=== PATIENT | male | born 1980 | race Caucasian/White ===

== ENCOUNTER 2017-05-15 09:24 | Emergency (ER) | payer BC ==
[~2017-05-15] VITALS: Ht 177.8 cm; Wt 99.8 kg
[2017-05-15 11:20] VITALS: BP 136/74
== END 2017-05-15 11:23 | disposition home or self-care (01) ==
LOC: FSED 09:24
DX: G89.11 Acute pain due to trauma (principal); M25.522 Pain in left elbow; I10 Essential (primary) hypertension; W06.XXXA Fall from bed, initial encounter
CPT/HCPCS: 99283

== ENCOUNTER 2018-09-12 14:47 | Emergency (ER) | payer BC ==
[~2018-09-12] VITALS: Ht 177.8 cm; Wt 102.1 kg
--- OUTSIDE RECORDS SUMMARY | 2018-09-12 14:49 | XMS REPORT ---
Author [facility] Address Unknown Phone Unavailable Care Team Providers Care Dietetic Assistant Name Role Phone Unavailable Unavailable Payers Payer Name Policy Type Policy Number Effective Date Expiration Date Problems This patient has no known problems. Allergies, Adverse Reactions, Alerts Allergy Name Allergy Type Status Severity Reaction(s) Onset Date Inactive Date Treating Clinician Comments No Known Allergies DA Active U 2018-06-07 00:00:00 Medications This patient has no known medications. Results Test Description Test Time Test Comments Text Results Atomic Results Result Comments COMPREHENSIVE METABOLIC PANEL 2018-06-07 13:19:00 SODIUM (test code=NA) 138 mEq/L 134-147 POTASSIUM (test code=K) 4.4 mEq/L 3.4-5.0 CHLORIDE (test code=CL) 104 mEq/L 100-108 CARBON DIOXIDE (test code=CO2) 30 mEq/L 21-33 ANION GAP (test code=GAP) 8 0-20 GLUCOSE (test code=GLU) 100 mg/dL 70-110 BLOOD UREA NITROGEN (test code=BUN) 11 mg/dL 7-18 GLOMERULAR FILTRATION RATE (test code=GFR) 75.3 105-110 Units of measure=ml/min/1.73 m2 CREATININE (test code=CREAT) 1.1 mg/dL 0.6-1.3 TOTAL PROTEIN (test code=PROT) 8.3 g/dL 6.4-8.2 ALBUMIN (test code=ALB) 4.30 g/dL 3.4-5.0 CALCIUM (test code=CA) 8.9 mg/dL 8.0-10.5 BILIRUBIN TOTAL (test code=BILT) 0.50 mg/dL 0.0-1.0 SGOT/AST (test code=AST) 28 IUnit/L 15-37 SGPT/ALT (test code=ALT) 52 IUnit/L 15-65 ALKALINE PHOSPHATASE TOTAL (test code=ALKP) 50 IUnit/L 20-125 HEPATIC FUNCTION [id number] 13:19:00* Test Item Value Reference Range Comments BILIRUBIN DIRECT (test code=BILD) 0.10 MG/DL 0.0-0.30 BILIRUBIN INDIRECT (test code=BILIND) 0.40 MG/DL [id number] 13:19:00* Test Item Value Reference Range Comments ALCOHOL (test code=ALC) < 0.003 G/dL <0.003 Ethyl Alcohol Interpretation: 0.100 gm/dL - Legally Intoxicated 0.300-0.400 gm/dL - Severely Intoxicated >0.400 gm/dL - Potentially LethalResults are for Medical purposes only, and not for Legal orEmployment evaluation purposes. DRUGS OF ABUSE SCREEN [id number] 13:09:00* Test Item Value Reference Range Comments URN COCAINE (test code=COCAURN) NEGATIVE NEGATIVE URN CANNABINOIDS (test code=CANNABURN) NEGATIVE NEGATIVE URN AMPHETAMINE (test code=AMPHETURN) NEGATIVE NEGATIVE URN BARBITURATE (test code=BARBITURN) NEGATIVE NEGATIVE URN BENZODIAZEPINE (test code=BENZOURN) NEGATIVE NEGATIVE Cut-off value:200 ng/mL URN OPIATES (test code=OPIATURN) NEGATIVE NEGATIVE Cut-off value:2000 ng/mL URN PHENCYCLIDINE (PCP) (test code=PHENCURN) NEGATIVE NEGATIVE Cutoffs:Barbiturates 200 ng/mLBenzodiazepines 200 ng/mLTHC Cannabinoids 50 ng/mLOpiates(Morphine) 2000 ng/mLAmphetamine 1000 ng/mLCocaine 300 ng/mLPCP phencyclidine 25 ng/mL Unconfirmed screening results shouldnot be used for non-medical purposes. THROMBOPLASTIN TIME [id number] 13:00:00* Test Item Value Reference Range Comments THROMBOPLASTIN TIME PARTIAL (test code=PTT) 35.1 Seconds 25.0-39.5 Therapeutic Range: 61.8-83.8 Sec Effective 04/21/2013 URINALYSIS [id number] 12:58:00* Test Item Value Reference Range Comments UA COLOR (test code=COLU) YELLOW YEL/STRAW UA APPEARANCE (test code=APPU) CLEAR CLEAR UA GLUCOSE DIPSTICK (test code=DGLUU) NEGATIVE NEGATIVE UA BILIRUBIN DIPSTICK (test code=BILU) NEGATIVE NEGATIVE UA KETONE DIPSTICK (test code=KETU) NEGATIVE NEGATIVE UA SPECIFIC GRAVITY (test code=SGU) 1.017 1.005-1.030 UA BLOOD DIPSTICK (test code=RUDI) NEGATIVE NEGATIVE UA PH DIPSTICK (test code=JORGE) 6.0 5.0-7.0 UA PROTEIN DIPSTICK (test code=PROU) NEGATIVE NEGATIVE UA UROBILINIOGEN DIPSTICK (test code=URO) 0.2 mg/dL 0.2-1.0 UA NITRITE DIPSTICK (test code=ROSLABA) NEGATIVE NEGATIVE UA LEUKOCYTE ESTERASE DIPSTICK (test code=LEUU) NEGATIVE NEGATIVE UA WBC (test code=WBCU) NONE SEEN WBC/HPF 0-3 UA RBC (test code=RBCU) 0-3 RBC/HPF 0-3 UA BACTERIA (test code=BACU) NONE SEEN /HPF NONE SEEN UA SQUAMOUS CELLS (test code=SQU) 0-5 /HPF NONE SEEN CBC W/AUTO [id number] 12:47:00* Test Item Value Reference Range Comments WHITE BLOOD CELL (test code=WBC) 7.60 x10 3/uL 4.5-11.0 RED BLOOD CELL (test code=RBC) 5.00 x10 6/uL 4.00-5.60 HEMOGLOBIN (test code=HGB) 15.9 g/dL 12.5-16.9 HEMATOCRIT (test code=HCT) 48.7 % 37.5-50.7 MEAN CELL VOLUME (test code=MCV) 97.4 fL 81.0-99.0 MEAN CELL HGB (test code=MCH) 31.8 pg 27.0-33.0 MEAN CELL HGB CONCETRATION (test code=MCHC) 32.6 g/dL 33.0-37.0 RED CELL DISTRIBUTION WIDTH CV (test code=RDW) 12.3 % 11.5-14.5 RED CELL DISTRIBUTION WIDTH SD (test code=RDW-SD) 44.0 fL 37.0-54.0 PLATELET COUNT (test code=PLT) 254 x10 3/uL 150-400 MEAN PLATELET VOLUME (test code=MPV) 10.4 fL 7.0-9.0 NEUTROPHIL % (test code=NT%) 67.3 % 56.0-77.0 IMMATURE GRANULOCYTE % (test code=IG%) 0.3 % 0.0-2.0 LYMPHOCYTE % (test code=LY%) 22.1 % 14.0-32.0 MONOCYTE % (test code=MO%) 7.8 % 4.8-9.0 EOSINOPHIL % (test code=EO%) 1.6 % 0.3-3.7 BASOPHIL % (test code=BA%) 0.9 % 0.0-2.0 NUCLEATED RBC % (test code=NRBC%) 0.0 % 0-0 NEUTROPHIL # (test code=NT#) 5.12 x10 3/uL 2.0-7.6 IMMATURE GRANULOCYTE # (test code=IG#) 0.02 x10 3/uL 0.00-0.03 LYMPHOCYTE # (test code=LY#) 1.68 x10 3/uL 1.0-3.8 MONOCYTE # (test code=MO#) 0.59 x10 3/uL 0.1-0.8 EOSINOPHIL # (test code=EO#) 0.12 x10 3/uL 0.0-0.2 BASOPHIL # (test code=BA#) 0.07 x10 3/uL 0.0-0.2 NUCLEATED RBC # (test code=NRBC#) 0.00 x10 3/uL 0.0-0.1 MANUAL DIFF REQUIRED (test code=MDIFF) NO - CT HEAD/BRAIN W/O [id number] 11:24:00 [facility] 1980 Age/S: 37 / M [address] [place] [address] Unit #: [id number] Loc: [place] [id number] Phys: Christin Boston DIRECTOR STAGE Acct: [id number] Dis Date: Status: PRE ER PHONE #: [phone] Exam Date: 06/07/2018 1108 FAX #: [phone] Reason: DIZZINESS, HTN, NUMBNESS TO EXTREMITIES EXAMS: CPT CODE: [id number] CT HEAD/BRAIN W/O CONT [id number] PROCEDURE: CT HEAD WITHOUT CONTRAST INDICATION: DIZZINESS, HTN, NUMBNESS TO EXTREMITIES COMPARISON: None. TECHNIQUE: Noncontrast helical imaging performed skull base to the vertex. Multiplanar reformations are obtained. CT imaging performed at this location utilizes radiation dose optimization techniques which include one or more of the following: -Automated exposure control -Adjustment of the mA and/or kV according to patient size -Use of iterative reconstruction technique CT Radiation Dose DLP 419.70 mGy-cm FINDINGS: BRAIN PARENCHYMA: There are normal lees-white interfaces, sulci and gyri. No intra-axial or extra-axial hemorrhage, mass lesion or mass effect. The midline structures and posterior fossa contents are unremarkable. VENTRICLES: The ventricular system is normal. The basilar cisterns are normal. ORBITS, MASTOIDS AND PARANASAL SINUSES: The visualized orbits and paranasal sinuses are unremarkable. The mastoid air cells are clear. SKULL: The calvarium is intact. IMPRESSION: Negative noncontrast CT of the brain. If there is continued clinical concern, further im aging options would include MRI. SL: CY-H at 1124 Reported and signed by: Julian Morrison M.D. PAGE 1 Signed Report (CONTINUED) Name: JUANY MOSS : 1980 Age/S: 37 / M [address] [place] [address] Unit #: [id number] Loc: [place] [address] Phys: Christin Boston Acct: [id number] Dis Date: Status: PRE ER PHONE #: [phone] Exam Date: 06/07/2018 1108 FAX #: [phone] Reason: DIZZINESS, HTN, NUMBNESS TO EXT REMITIES EXAMS: CPT CO DE: [id number] CT HEAD/BRAIN W/O CONT [id number] <Continued> CC: Christin Boston; Mike Mosley MD Technologist:Yovany Maciel, RT(R) CTDI: DLP: Trnscb Date/Time: 06/07/2018 (1124) [email or web address] Orig Print D/T: S: 06/07/2018 (7019) CTDI: JEREMIAH: PAGE 2 Signed Report
--- NOTE | 2018-09-12 16:33 | Diagnostic Imaging Report ---
RIGHT ELBOW X-RAY - 3 VIEWS HISTORY: ^[id number] ^[id number] COMPARISON: None available. FINDINGS: Bones: No acute displaced fracture. Osseous alignment is within normal limits. Joints: The joint spaces are well-maintained. Soft tissues: Soft tissue swelling within the lateral and posterior aspect of the elbow. IMPRESSION: Soft tissue swelling posterior and medial to the elbow without acute fractures. If pain persists, consider repeat x-rays in one week. Signed by: Dr. Blanca Nunez M.D. on 09/12/2018 4:30 PM
--- NOTE | 2018-09-12 16:35 | Diagnostic Imaging Report ---
RIGHT SHOULDER X-RAY - 2 VIEWS HISTORY: ^[id number] ^[id number] COMPARISON: None available. FINDINGS: Bones: No acute displaced fracture. Osseous alignment is within normal limits. Joints: The joint spaces are well-maintained. Soft tissues: The soft tissues appear unremarkable. IMPRESSION: No acute radiographic abnormality. Signed by: Dr. Blanca Nunez M.D. on 09/12/2018 4:32 PM
[2018-09-12 17:05] VITALS: BP 153/95
== END 2018-09-12 17:03 | disposition home or self-care (01) ==
LOC: FSED 14:47
DX: S46.811A Strain of other muscles, fascia and tendons at shoulder and upper arm level, right arm, initial encounter (principal); S50.01XA Contusion of right elbow, initial encounter; I10 Essential (primary) hypertension; V97.1XXA Person injured while boarding or alighting from aircraft, initial encounter; Y92.520 Airport as the place of occurrence of the external cause
CPT/HCPCS: 99283

== ENCOUNTER 2021-01-05 08:45 | Emergency (ER) | payer BC ==
[~2021-01-05] VITALS: Ht 185.4 cm; Wt 81.6 kg
[2021-01-05] MEDS ORDERED: SODIUM CHLORIDE 0.9% 50ML 50 ML ONE (09:28)
[2021-01-05] MEDS ORDERED: IOPAMIDOL 370 MG/ML 200 ML INFUS..BTL INJ ONE (09:28)
[2021-01-05 10:34] VITALS: BP 132/71
== END 2021-01-05 10:36 | disposition home or self-care (01) ==
LOC: FSED 09:10
DX: R07.9 Chest pain, unspecified (principal); I10 Essential (primary) hypertension
CPT/HCPCS: 71260; 80053; 84484; 85025; 93005; 99283; Q9967